=== PATIENT | female | born 2000 | race Caucasian/White ===

== ENCOUNTER 2022-10-30 00:37 | Emergency (ER) | payer MEDICAID ==
[~2022-10-30] VITALS: Ht 160 cm; Wt 60.0 kg
[2022-10-30] MEDS ORDERED: IPRATROPIUM BROMIDE (0.02%) 0.5MG/2.5ML NEB HHN STA (00:45)
[2022-10-30] MEDS ORDERED: PREDNISONE 20MG TABLET PO STA (00:45)
[2022-10-30] MEDS ORDERED: ALBUTEROL (0.083%) 2.5MG/3ML NEB HHN STA (00:45)
[2022-10-30] MEDS ORDERED: ALBU6.7H3 INH (02:55)
[2022-10-30] MEDS ORDERED: P20 MT (02:55)
[2022-10-30 03:45] VITALS: BP 115/72
== END 2022-10-30 03:46 | disposition home or self-care (01) ==
LOC: ER 00:37
DX: J45.909 Unspecified asthma, uncomplicated (principal)
CPT/HCPCS: 71045; 94644; 99285; Z7610